=== PATIENT | male | born 1930 | race Caucasian/White ===

== ENCOUNTER 2017-04-20 14:26 | Inpatient (IN) | payer MEDICARE, BC ==
[~2017-04-20] VITALS: Ht 172.7 cm; Wt 54.4 kg
--- NOTE | ~2017-04-20 | PN ---
PATIENT:THEE ZAMBRANO MEDICAL RECORD: [id number] LOCATION:[facility] ADMISSION DATE: 04/20/17 PROGRESS NOTE DATE OF SERVICE: 04/29/2017 SUBJECTIVE: No new complaint. OBJECTIVE: The patient's behavior is essentially unchanged. He remains rather difficult to manage and is sarcastic in dealing with staff members. However, he has been compliant with medication. On exam, mood irritable and grumpy. Affect is brittle. Speech tends to be terse. Content of thought unchanged. Sensorium unchanged. ASSESSMENT: No change in diagnosis. PLAN: 1. Continue current medications. 2. Continue supportive therapy. TRANSINT:[id number] Voice Confirmation ID: [id number] DOCUMENT ID: [id number] OSCAR FROST III, MD at 1506 CC: [id number] DICTATION DATE: 04/29/17 1137 JUNIOR PROJECT COORDINATOR: 04/29/17 1151 ADM IN [place] [id number] [place] [address]
--- NOTE | ~2017-04-20 | PN ---
PATIENT:THEE ZAMBRANO MEDICAL RECORD: [id number] LOCATION:[facility] ADMISSION DATE: 04/20/17 PROGRESS NOTE DATE OF SERVICE: 04/22/2017 SUBJECTIVE: No new complaint. OBJECTIVE: Staff report the patient tends to be rather irritable and at times, oppositional. However, he has taken his medication as prescribed. On exam, mood is indeed irritable. Affect is very shallow and brittle. Speech tends to be terse. Content of thought is predominated by expressions of pessimism as well as futility. Sensorium shows no change. ASSESSMENT: No change in diagnosis. PLAN: 1. Maintain current medication. 2. Continue supportive therapy. TRANSINT:[id number] Voice Confirmation ID: [id number] DOCUMENT ID: [id number] OSCAR FROST III, MD at 1100 CC: [id number] DICTATION DATE: 04/22/17 1149 INSPECTOR PRINTED CIRCUIT BOARDS: 04/22/17 1212 ADM IN [place] [id number] [place] [id number]
--- NOTE | ~2017-04-20 | PN ---
PATIENT:THEE ZAMBRANO MEDICAL RECORD: [id number] LOCATION:[facility] ADMISSION DATE: 04/20/17 PROGRESS NOTE DATE OF SERVICE: 04/26/2017 SUBJECTIVE: No new complaint. OBJECTIVE: The patient continues to be sarcastic and demeaning in his dealings with staff members. However, he has not been aggressive. On exam, mood is irritable. Affect is very shallow and brittle. Speech is somewhat tangential. Content of thought is predominated by expressions of persecution. Sensorium shows no change. ASSESSMENT: No change in diagnosis. PLAN: 1. Maintain current medication. 2. We will assist family and aftercare placement. TRANSINT:[id number] Voice Confirmation ID: [id number] DOCUMENT ID: [id number] OSCAR FROST III, MD at 1053 CC: [id number] DICTATION DATE: 04/26/17 1220 NAVY MATERIAL INSPECTOR: 04/26/17 1227 ADM IN [place] [id number] [place] [address]
--- NOTE | ~2017-04-20 | PN ---
PATIENT:THEE ZAMBRANO MEDICAL RECORD: [id number] LOCATION:[facility] ADMISSION DATE: 04/20/17 PROGRESS NOTE DATE OF SERVICE: 04/27/2017 SUBJECTIVE: No new complaint. OBJECTIVE: The patient continues to be very sarcastic and difficult to manage. He is extremely rude to staff members and poorly cooperative; however, no evidence of new-onset psychosis. PHYSICAL EXAMINATION: On exam, mood is irritable curable. Affect is very brittle. Speech is laced with profanities. Content of thought is unchanged. Sensorium unchanged. ASSESSMENT: No change in diagnosis. PLAN: 1. Continue current medications. 2. Continue supportive therapy. TRANSINT:[id number] Voice Confirmation ID: [id number] DOCUMENT ID: [id number] OSCAR FROST III, MD at 1054 CC: [id number] DICTATION DATE: 04/27/17 1210 BACKEND PYTHON DEVELOPER: 04/27/17 1247 ADM IN [place] [id number] [place] [id number]
--- NOTE | ~2017-04-20 | DS ---
PATIENT:THEE ZAMBRANO :30 MEDICAL RECORD: [id number] DISCHARGE SUMMARY ADMISSION DATE: 04/20/17 DISCHARGE DATE: 04/29/17 DATE OF ADMISSION: 04/20/2017 DATE OF DISCHARGE: 04/29/2017 HISTORY: [facility] admission for this 86-year-old white male, recently admitted to [facility] for respite care. He had a previous diagnosis of pneumonia and COPD. He had been uncooperative at the longterm, would become agitated and had made suicidal statements. Because of this, the patient was admitted. Other information indicated the patient does have a previous diagnosis of dementia. For further details, please see previously dictated history. COURSE IN THE HOSPITAL: The patient was seen in consultation by Dr. Denise Benton. Dr. Benton noted several ongoing medical problems including recent pneumonia, which was being treated with Medrol Dosepak and Levaquin, COPD, hypertension, peptic ulcer disease, benign prostatic hyperplasia, seizure disorder, macular degeneration, severe hearing impairment, and iron deficiency. From a medication standpoint, the patient was treated very conservatively. He was given Geodon 20 mg daily for control of his agitation. He responded quite well to this. He was maintained on Namenda 2.5 mg b.i.d. for his dementia symptoms. He was kept on previous dose of Proventil inhaler. Given vitamin D supplements, Flomax, fish oil, and Jeannie. The patient continued to be imperious during the course of the hospitalization. He was frequently very sarcastic and rude to staff members, but this seems to simply be an aspect of his personality and not indicative of new illness. By the time of discharge, the patient was stable, making no further suicidal statements and he had calmed considerably. He was discharged to longterm in stable condition. 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 AXIS II: No diagnosis. AXIS III: Macular degeneration, hearing impairment, chronic obstructive pulmonary disease, recent pneumonia. AXIS IV: Moderate. AXIS V: 36. PLAN: 1. The patient is discharged on current medications. 2. Diet and activities as tolerated. 3. Follow up with primary care physician in longterm. TRANSINT:[id number] Voice Confirmation ID: [id number] DOCUMENT ID: [id number] DISCHARGE SUMMARY REPORT [id number] THEE ZAMBRANO OSCAR FROST III, MD at 0648 CC: [id number] DICTATION DATE: 04/29/17 1527 INSTALLMENT ACCOUNT CHECKER: 04/30/17 1145 DIS IN 04/29/17 [place] [id number] [place] [address]
--- NOTE | ~2017-04-20 | PN ---
PATIENT:THEE ZAMBRANO MEDICAL RECORD: [id number] LOCATION:[facility] ADMISSION DATE: 04/20/17 PROGRESS NOTE DATE OF SERVICE: 04/23/2017 SUBJECTIVE: The patient's case was discussed with staff. He has no new complaint. OBJECTIVE: The patient is in good behavioral control with poor insight about his condition. He tolerates his medicines well. ASSESSMENT: No change in diagnoses. PLAN: The patient will be treated with low-dose of Namenda to assist with his cognitive impairment. He will be monitored for clinical changes associated with its use. TRANSINT:[id number] Voice Confirmation ID: [id number] DOCUMENT ID: [id number] GIORGI JONES MD at 1215 CC: [id number] DICTATION DATE: 04/23/17 1459 GENERAL MILLING SUPERINTENDENT: 04/23/172014 ADM IN [facility] [address] [place] [address]
--- NOTE | ~2017-04-20 | PN ---
PATIENT:THEE ZAMBRANO MEDICAL RECORD: [id number] LOCATION:[facility] ADMISSION DATE: 04/20/17 PROGRESS NOTE DATE OF SERVICE: 04/24/2017 SUBJECTIVE: The patient's case was discussed with staff. He has no new complaint. OBJECTIVE: The patient is in good behavioral control with limited insight about his condition. He tolerates his medicines well. ASSESSMENT: No change in diagnoses. PLAN: Current medicines and therapies have been reviewed and will be maintained. Long-term prognosis is guarded. TRANSINT:[id number] Voice Confirmation ID: [id number] DOCUMENT ID: [id number] GIORGI JONES MD at 1349 CC: [id number] DICTATION DATE: 04/24/17 1242 GRIZZLY WORKER: 04/24/172037 ADM IN [place] [id number] [place] [address]
--- NOTE | ~2017-04-20 | PN ---
PATIENT:THEE ZAMBRANO MEDICAL RECORD: [id number] LOCATION:[facility] ADMISSION DATE: 04/20/17 PROGRESS NOTE DATE OF SERVICE: 04/28/2017 SUBJECTIVE: No new complaint. OBJECTIVE: The patient continues to be somewhat irritable and cantankerous, but aside from this no change. He is taking medications as prescribed. On exam, mood is indeed irritable. Affect is brittle. Speech tends to be terse. Content of thought is unchanged. Sensorium is unchanged. ASSESSMENT: No change in diagnosis. PLAN: 1. Maintain current medication. 2. Continue supportive therapy. TRANSINT:[id number] Voice Confirmation ID: [id number] DOCUMENT ID: [id number] OSCAR FROST III, MD at 0716 CC: [id number] DICTATION DATE: 04/28/17 1127 COMMERCIAL LOAN ASSISTANT: 04/28/17 1320 ADM IN [facility] [address] [place] [id number]
--- NOTE | ~2017-04-20 | PSY ---
PATIENT NAME:THEE ZAMBRANO MEDICAL RECORD: [id number] : 30 LOCATION:[facility] ADMISSION DATE: 04/20/17 ACCOUNT: [id number] PSYCHIATRIC EVALUATION DATE OF EVALUATION: 04/21/17 IDENTIFYING DATA: This [place] [facility] [place] admission for this 86-year-old white male. HISTORY OF PRESENT ILLNESS: This patient had recently been admitted at [facility] for respite care. He had previously been treated at [facility] for pneumonia and complications of COPD. While at [facility], the patient had been very uncooperative, he had refused to take medications. He had tried to pull out his Moore catheter, became very easily agitated, and he had made suicidal statements. Information was obtained from the patient's stepdaughter. She indicated that she believes the patient does have dementia, although a formal diagnosis has never been made. He does have multiple medical problems here. The patient's is homebound with multiple medical problems on her own and so the situation at home is quite untenable given the patient's current problems. In addition to the above problems, the patient has some urinary retention and may possibly have a urinary tract infection. Because of markedly worsening behavior and combativeness, the patient is now admitted. PAST MEDICAL HISTORY: Very significant for COPD. The patient was a long-term smoker. He does have urinary retention as mentioned, recent pneumonia, and inhalant allergies. FAMILY HISTORY: Noncontributory. SOCIAL HISTORY: The patient is . his second . Long-term smoker. Alcohol use, not known. ALLERGIES: INCLUDE SULFONAMIDE, ANTIBIOTICS, AND ATIVAN. MENTAL STATUS: On exam, the patient is poorly cooperative. He is very hard of hearing. He also has macular degeneration and appears to have difficulty focusing on the examiner. Mood is irritable. Affect is very brittle. Speech is quite terse. Content of thought focuses on somatic complaints. The patient is oriented to person only. He shows global memory impairment. 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 AXIS II: No diagnosis. AXIS III: Macular degeneration, hearing impairment, chronic obstructive pulmonary disease, recent pneumonia. AXIS IV: Severe. AXIS V: 32. PLAN: 1. The patient is admitted for further medical and psychiatric workup. 2. Diet and activities as tolerated. 3. Maintain contact with family regarding aftercare. TRANSINT:[id number] Voice Confirmation ID: [id number] DOCUMENT ID: [id number] OSCAR FROST III, MD at 0452 CC: [id number] DICTATION DATE: 04/21/17 1131 PATIENT CARE SECRETARY: 04/21/17 1221 ADM IN [facility] [address] [place] [address]
[2017-04-20] MEDS ORDERED: ALBUTEROL2.5 MG/3 M INH (20:47)
[2017-04-20] MEDS ORDERED: FISH OIL 1,0001 CA1 PO (20:48)
[2017-04-20] MEDS ORDERED: LEVAQUIN500 MG PO (20:49)
[2017-04-20] MEDS ORDERED: CLARITIN 10 MG10 MG PO (20:50)
[2017-04-20] MEDS ORDERED: MEDROL4 MG PO (20:52)
[2017-04-20] MEDS ORDERED: MILK OF MAGNESI30 ML PO (20:55)
[2017-04-20] MEDS ORDERED: MEDROL DOSE PACK4 MG PO (20:55)
[2017-04-20] MEDS ORDERED: FLOMAX0.4 MG PO (20:56)
[2017-04-20] MEDS ORDERED: ZOFRAN4 MG PO (20:56)
[2017-04-21 06:24] VITALS: BP 154/83
[2017-04-21 06:39] LABS: BASOPHILS 1.5 % (0-2); EOSINOPHILS 6.7 % (0-7); HEMATOCRIT 40.4 % (42.0-54.0); HEMOGLOBIN 11.6 g/dL (13.5-17.5); IMMATURE GRANULOCYTES 2.1 % (0-5); LYMPHOCYTES 16.2 % (15-50); MCH 24.1 pg (26.0-34.0); MCHC 28.7 g/dL (31.0-37.0); MEAN PLATELET VOLUME 9.5 fL (7.4-10.4); MONOCYTES 13.4 % (2-11); NEUTROPHILS 60.1 % (40-80); PLATELET COUNT 460 10x3/uL (130-400); RBC 4.81 10x6/uL (4.20-6.10)
[2017-04-21 06:55] LABS: HEMOGLOBIN A1C 5.4 % (4.8-6.0)
[2017-04-21 07:27] LABS: ALBUMIN 2.6 g/dL (3.4-5.0); ALKALINE PHOSPHATASE 64 U/L (46-116); ALT (SGPT) 15 U/L (10-68); CALC OSMOLALITY 290 mosm/kg (275-300); CALCIUM 8.5 mg/dL (8.5-10.1); CARBON DIOXIDE 32.3 mmol/L (21.0-32.0); CHLORIDE - SERUM 106 mmol/L (98-107); CHOL - HDL RATIO 2.6 ratio (2.3-4.9); CHOLESTEROL, TOTAL 126 mg/dL (0-200); CREATININE - SERUM 0.8 mg/dL (0.6-1.3); GLUCOSE 94 mg/dL (74-106); HDL CHOLESTEROL 49 mg/dL (32-96); LDL CHOLESTEROL 66 mg/dL (0-100); LDL-HDL RATIO 1.3 ratio (1.5-3.5); POTASSIUM - SERUM 4.3 mmol/L (3.5-5.1); PROTEIN - SERUM 5.8 g/dL (6.4-8.2); SODIUM 143 mmol/L (136-145); TRIGLYCERIDE 55 mg/dL (30-200); UREA NITROGEN 30 mg/dL (7-18); eGFR NON AFRICAN AMERICAN > 90 mL/min (90-120)
[2017-04-21 10:46] VITALS: BP 150/70
[2017-04-21 10:59] VITALS: BMI 20.9
[2017-04-21 20:41] VITALS: BP 110/48
[2017-04-22 07:21] LABS: FOLATE (FOLIC ACID) - SERUM 12.9 ng/mL (>3.0); RAPID PLASMA REAGIN Non Reactive (Non Reactive)
[2017-04-22 08:16] LABS: VITAMIN D 25 HYDROXY 13.7 ng/mL (30.0-100.0)
[2017-04-22 09:31] VITALS: BP 144/65
[2017-04-22 12:49] LABS: APPEARANCE CLEAR (CLEAR); BILIRUBIN NEGATIVE (NEGATIVE); COLOR DK YELLOW (YELLOW); GLUCOSE NEGATIVE (NEGATIVE); KETONE NEGATIVE (NEGATIVE); NITRITE NEGATIVE (NEGATIVE); PROTEIN 1+ mg/dL (NEGATIVE); UROBILINOGEN NORMAL (NORMAL)
[2017-04-22 12:50] LABS: BACTERIA FEW /hpf (NONE SEEN); EPITHELIAL CELLS 0-5 /hpf (0-5); RED CELLS - URINE >50 /hpf (0-5); WHITE CELLS - URINE 0-5 /hpf (0-5)
[2017-04-22 12:51] LABS: HYALINE CAST RARE /lpf (NONE SEEN); MUCUS >1+ /lpf (NONE SEEN)
[2017-04-22 13:43] VITALS: Ht 172.7 cm; Wt 54.4 kg
[2017-04-22 19:30] VITALS: BP 132/89
[2017-04-23 08:30] VITALS: BP 137/057
[2017-04-23 19:53] VITALS: BP 138/89
[2017-04-24 09:11] VITALS: BP 109/56
[2017-04-24 19:30] VITALS: BP 114/68
[2017-04-25 07:00] VITALS: BP 134/78
[2017-04-25 20:10] VITALS: BP 140/74
[2017-04-26 07:00] VITALS: BP 148/68
[2017-04-26 19:46] VITALS: BP 151/74
[2017-04-27 08:30] VITALS: BP 151/082
[2017-04-27 13:49] LABS: HEMATOCRIT 40.7 % (42.0-54.0); HEMOGLOBIN 12.1 g/dL (13.5-17.5); LYMPHOCYTES 9.3 % (15-50); MCH 24.5 pg (26.0-34.0); MCHC 29.7 g/dL (31.0-37.0); MCV 82.6 fL (80.0-100.0); MEAN PLATELET VOLUME 9.7 fL (7.4-10.4); PLATELET COUNT 371 10x3/uL (130-400); RBC 4.93 10x6/uL (4.20-6.10); RDW 31.3 % (11.5-14.5); WBC 10.8 10x3/uL (4.8-10.8)
[2017-04-27 13:50] LABS: CALC OSMOLALITY 293 mosm/kg (275-300); CALCIUM 8.9 mg/dL (8.5-10.1); CARBON DIOXIDE 32.6 mmol/L (21.0-32.0); CHLORIDE - SERUM 104 mmol/L (98-107); CREATININE - SERUM 0.9 mg/dL (0.6-1.3); POTASSIUM - SERUM 4.6 mmol/L (3.5-5.1); SODIUM 142 mmol/L (136-145); UREA NITROGEN 31 mg/dL (7-18); eGFR NON AFRICAN AMERICAN 85 mL/min (90-120)
[2017-04-27 13:53] LABS: GLUCOSE 165 mg/dL (74-106)
[2017-04-27 19:36] VITALS: BP 133/63
[2017-04-28 09:47] VITALS: BP 98/56
[2017-04-28 19:09] VITALS: BP 120/56
[2017-04-29 08:30] VITALS: BP 129/055
[2017-04-29] MEDS ORDERED: ALBUTEROL2.5 MG/3 M INH (15:16)
[2017-04-29] MEDS ORDERED: HEMOCYTE PLUS C1 CAP PO (15:18)
[2017-04-29] MEDS ORDERED: VITAMIN D5000 UNIT PO (15:19)
== END 2017-04-29 16:34 | disposition home or self-care (01) | DRG 884 ==
LOC: D.PSYCH 14:26
PROVIDERS: Psychiatry & Neurology Psychiatry
DX: F01.51 Vascular dementia, unspecified severity, with behavioral disturbance (principal); H35.30 Unspecified macular degeneration; Z87.891 Personal history of nicotine dependence; H44.9 Unspecified disorder of globe; I10 Essential (primary) hypertension; K27.9 Peptic ulcer, site unspecified, unspecified as acute or chronic, without hemorrhage or perforation; N40.1 Benign prostatic hyperplasia with lower urinary tract symptoms; R33.8 Other retention of urine; G40.909 Epilepsy, unspecified, not intractable, without status epilepticus; J30.9 Allergic rhinitis, unspecified; G89.29 Other chronic pain; M54.9 Dorsalgia, unspecified; E55.9 Vitamin D deficiency, unspecified; D50.9 Iron deficiency anemia, unspecified; R26.9 Unspecified abnormalities of gait and mobility; Z91.81 History of falling; H91.90 Unspecified hearing loss, unspecified ear; K59.00 Constipation, unspecified